=== PATIENT | male | born 1990 | race Caucasian/White ===

== ENCOUNTER 2022-10-07 17:45 | Emergency (ER) | payer SELFPAY ==
[~2022-10-07] VITALS: Ht 165.1 cm; Wt 58.1 kg
--- NOTE | 2022-10-08 03:05 | NUR ---
Patient discharged to home in stable condition. Written and verbal after care instructions given. Patient verbalizes understanding of instruction. PT ambulatory with a steady gait
[2022-10-08 03:34] VITALS: BP 140/80
== END 2022-10-08 03:34 | disposition home or self-care (01) ==
LOC: ER 18:38
DX: F10.129 Alcohol abuse with intoxication, unspecified (principal); Y90.9 Presence of alcohol in blood, level not specified